=== PATIENT | female | born 1985 | race Caucasian/White ===

== ENCOUNTER → 2020-12-08 | Outpatient (CLI) | payer MEDICARE, OTHER ==
[~2020-12-08] MED LIST: CYMBALTA30 MG PO; DOCUSATE SODIU100 MG PO; ETODOLAC400 MG PO; IBUPROFEN600 MG PO; METHADONE HCL PO; METHOCARBAMOL500 MG PO; PRENATAL MULTI1 EAC6 PO; VALACYCLOVIR500 MG PO; VALIUM 10 MG TA10 MG PV
[2020-12-08 13:45] LABS: HEMOGLOBIN 13.8 gm/dl (12.3-15.3); RED BLOOD COUNT 4.24 M/UL (4.00-5.10); WHITE BLOOD COUNT 5.9 K/UL (4.5-11.0)
== END ==
LOC: OPSV2 12:30
PROVIDERS: Obstetrics & Gynecology
DX: Z01.812 Encounter for preprocedural laboratory examination (principal); R10.2 Pelvic and perineal pain
CPT/HCPCS: 36415; 81001; 85025

== ENCOUNTER 2020-12-13 18:47 | Outpatient (CLI) | payer MEDICARE, OTHER ==
[~2020-12-13] VITALS: Ht 175.3 cm; Wt 78.9 kg
--- NOTE | 2020-12-13 22:47 | NUR ---
1930 PATIENT STATED SHE IS HAVING A LOT OF PAIN, SEE EMAR. EDUCATED PATIENT REGARDING MEDICATION AVALAIBLE AND ABOUT GETTING OUT OF BED AND MOVING AROUND ROOM WITH INCENTIVE SPIROMETRY USE. PATIENT VERBALIZED UNDERSTANDING BUT REQUESTED TO STAY IN BED AND REST AT THIS TIME SO SHE CAN HAVE MEDICATOIN FOR PAIN. CALL [facility] AT BEDSIDE.
--- NOTE | 2020-12-13 22:49 | NUR ---
2144 PATIENT STATED SHE NEEDED TO USE RESTROOM AT THIS TIME, STATED "EVERYTHING HURTS" WHEN ATTEMPTING TO GET PATIENT UP TO RESTROOM. BEDSIDE COMMODE USED AT THIS TIME, PATIENT NOTED TO VOID 100ML OF DARK URINE AT THIS TIME, PATIENT BACK IN BED. EDUCATED PATIENT REGARDING DRINKING MORE WATER TO HELP WITH URINE OUTPUT. PATIENT AWARE TO CALL NURSES STATION BEFORE GETTING OUT OF BED AGAIN. CALL [facility] AT BEDSIDE. 2199 REPORT GIVEN TO CARMELO Hoskins RN.
== END 2020-12-14 11:08 | disposition home or self-care (01) ==
LOC: OB 18:47
DX: N81.2 Incomplete uterovaginal prolapse (principal); F98.8 Other specified behavioral and emotional disorders with onset usually occurring in childhood and adolescence; G43.909 Migraine, unspecified, not intractable, without status migrainosus; M62.89 Other specified disorders of muscle; Z20.822 Contact with and (suspected) exposure to COVID-19; G89.29 Other chronic pain; M54.9 Dorsalgia, unspecified; N94.10 Unspecified dyspareunia
CPT/HCPCS: 84703; C1763; C1769; J0690; J1100; J1170; J2001; J2250; J2270; J2405; J2704; J2710; J3010; J7050; J7120